=== PATIENT | male | born 1995 | race Two or more races ===

== ENCOUNTER 2018-04-06 16:14 | Emergency (ER) | payer OTHER ==
[~2018-04-06] VITALS: Ht 175.3 cm; Wt 76.2 kg
[2018-04-06] MEDS ORDERED: FAMC500T PO (17:36)
--- NOTE | 2018-04-06 17:37 | PHYS DOC ---
Past History Past Medical History: Asthma Past Surgical History: No Surgical History Alcohol Use: Occasionally Drug Use: Marijuana Adult General Chief Complaint Chief Complaint: SEXUALLY TRANSMITTED DISEASE HPI HPI Patient is a 22 year old male who presents with complaint of genital lesion. Patient states he had unprotected sex in September and since then had has intermittent episodes of vesicular lesion in his penis and genital area without pain or itching or fever and chills or penile discharge. Patient states for the last 3 days he had cold blisters on his upper lip without history of fever or oral sex. Patient denies history of STD and urinary symptom. Review of Systems Review of Systems Constitutional: Denies fever or chills [] Eyes: Denies change in visual acuity, redness, or eye pain [] HENT: Denies nasal congestion or sore throat [] Respiratory: Denies cough or shortness of breath [] Cardiovascular: No additional information not addressed in HPI [] GI: Denies abdominal pain, nausea, vomiting, bloody stools or diarrhea [] : Denies dysuria or hematuria [] Musculoskeletal: Denies back pain or joint pain [] Integument: Denies rash, reports skin lesions [] Neurologic: Denies headache, focal weakness or sensory changes [] Endocrine: Denies polyuria or polydipsia [] All other systems were reviewed and found to be within normal limits, except as documented in this note. Allergies Allergies Allergies Coded Allergies Type Severity Reaction Last Updated Verified No Known Drug Allergies 04/06/18 No Physical Exam Physical Exam Constitutional: Well developed, well nourished, no acute distress, non-toxic appearance. [] HENT: Normocephalic, atraumatic Eyes: PERRLA, EOMI, conjunctiva normal, no discharge. [] Neck: Normal range of motion, no tenderness, supple, no stridor. [] Cardiovascular:Heart rate regular rhythm, no murmur [] Lungs & Thorax: Bilateral breath sounds clear to auscultation [] Abdomen: Bowel sounds normal, soft, no tenderness, no masses, no pulsatile masses. [] Skin: Warm, dry, blister lesion of penis, blister of upper lip Back: No tenderness, no CVA tenderness. [] Extremities: No tenderness, no cyanosis, no clubbing, ROM intact, no edema. [] Neurologic: Alert and oriented X 3, normal motor function, normal sensory function, no focal deficits noted. [] Psychologic: Affect normal, judgement normal, mood normal. [] Current Patient Data Vital Signs Vital Signs Date Time Temp Pulse Resp B/P (MAP) Pulse Ox O2 Delivery O2 Flow Rate FiO2 04/06/18 16:32 98.0 60 18 100 Room Air EKG EKG [] Radiology/Procedures Radiology/Procedures [] Course & Med Decision Making Course & Med Decision Making discharge: I've spoken with the patient and/or caregivers. I've explained the patient's condition, diagnosis and treatment plan based on information available to me at this time. I've answered the patient's and/or caregivers questions and addressed any concerns. The patient and/or caregivers have a good understanding the patient's diagnosis, condition and treatment plan as can be expected at this point. Vital signs have been stabilized. The patient's condition is stable for discharge from the emergency department. The patient will pursue further outpatient evaluation with her primary care provider or other designated consulting physician as outlined in the discharge instructions. Patient and/or caregivers are agreeable to this plan of care and follow-up instructions have been explained in detail. The patient and/or caregivers have received these instructions in written format and expressed understanding of these discharge instructions. The patient and her caregivers are aware that if any significant change in condition or worsening of symptoms should prompt him to immediately return to this of the closest emergency department. If an emergent department is not readily available I would encourage him to call 911. Marek Disclaimer Dragon Disclaimer This electronic medical record was generated, in whole or in part, using a voice recognition dictation system. Departure Departure: Impression: Primary Impression: Genital herpes Additional Impression: Cold sore Disposition: HOME, SELF-CARE (at 1735) Condition: STABLE Referrals: NON,STAFF (PCP) Patient Instructions: Cold Sore, Genital Herpes Additional Instructions: Use [id number] Abreva for cold sore Follow-up with your primary care physician in 3-5 days for remaining results of STD evaluation Scripts Famciclovir (FAMCICLOVIR) 500 Mg Tablet 1500 MG PO ONCE for herpes, #3 TAB Prov: MELODIE LUCIO MD 04/06/18 Problem Qualifiers MELODIE LUCIO MD Apr 06, 2018 17:37
[2018-04-06 17:44] VITALS: BP 121/67
[2018-04-08 17:09] LABS: HERPES SIMPLEX TYPE 1 Negative (Negative); HERPES SIMPLEX TYPE 2 Negative (Negative)
== END 2018-04-06 17:45 | disposition home or self-care (01) ==
LOC: ER 16:14
DX: A60.02 Herpesviral infection of other male genital organs (principal); L98.8 Other specified disorders of the skin and subcutaneous tissue; K13.0 Diseases of lips; J45.909 Unspecified asthma, uncomplicated
CPT/HCPCS: 36415; 87491; 87529; 87591; 99284